=== PATIENT | female | born 1960 | race Caucasian/White ===

== ENCOUNTER 2017-01-15 18:44 | Emergency (ER) | payer SELFPAY ==
[~2017-01-15] VITALS: Ht 165.1 cm; Wt 70.6 kg
[2017-01-15 18:48] VITALS: Ht 165.1 cm; Wt 70.6 kg
== END 2017-01-15 19:18 | disposition left against medical advice (07) ==
LOC: E/R 18:44
DX: Z53.21 Procedure and treatment not carried out due to patient leaving prior to being seen by health care provider (principal)